=== PATIENT | female | born 1940 | race Native Hawaiian/Other Pacific Islander ===

== ENCOUNTER 2017-02-28 09:11 | Emergency (ER) | payer MEDICARE, OTHER ==
[~2017-02-28] VITALS: Ht 157.5 cm; Wt 86.4 kg
[~2017-02-28 09:11] MED LIST: AMIO200T44 PO; AMLO-512 PO; ANAS1TAB49 PO; ATOR20TA86 PO; CALC-724 PO; CARV25 PO; HYDR25TA PO; INSLAN SQ; LOSA50TA2 PO; METF500T4 PO; MULT-71 PO; SITA50 PO
[2017-02-28 09:22] LABS: GLUCOSE,POINT OF CARE 122 MG/DL (70-110)
[2017-02-28] MEDS ORDERED: HYDROCODONE/ACETAMINOPHEN 5-325 MG TABLET PO ONE (11:00)
[2017-02-28 11:20] VITALS: BP 149/76
== END 2017-02-28 11:25 | disposition home or self-care (01) ==
LOC: EMS 09:13
DX: S20.212A Contusion of left front wall of thorax, initial encounter (principal); I10 Essential (primary) hypertension; E78.00 Pure hypercholesterolemia, unspecified; E11.9 Type 2 diabetes mellitus without complications; Z79.4 Long term (current) use of insulin; Z85.3 Personal history of malignant neoplasm of breast; W18.30XA Fall on same level, unspecified, initial encounter; Y93.89 Activity, other specified; Y99.8 Other external cause status; Y92.89 Other specified places as the place of occurrence of the external cause
CPT/HCPCS: 71100; 82962; 99284

== ENCOUNTER 2017-03-25 12:25 | Emergency (ER) | payer MEDICARE, OTHER ==
[~2017-03-25] VITALS: Ht 154.9 cm; Wt 89.0 kg
[2017-03-25 12:57] LABS: GLUCOSE,POINT OF CARE 162 MG/DL (70-110)
[2017-03-25] MEDS ORDERED: KETOROLAC TROMETHAMINE 60 MG/2 ML VIAL IM ONE (16:00)
[2017-03-25] MEDS ORDERED: CYCLOBENZAPRINE HCL 10 MG TABLET PO ONE (16:00)
[2017-03-25] MEDS ORDERED: HYDROCODONE/ACETAMINOPHEN 5-325 MG TABLET PO ONE (16:00)
[2017-03-25 16:53] VITALS: BP 129/86
== END 2017-03-25 17:09 | disposition home or self-care (01) ==
LOC: EMS 12:30
DX: M54.5 Low back pain (principal); I10 Essential (primary) hypertension; E78.00 Pure hypercholesterolemia, unspecified; E11.9 Type 2 diabetes mellitus without complications; Z79.4 Long term (current) use of insulin; W19.XXXA Unspecified fall, initial encounter; Y93.89 Activity, other specified; Y92.89 Other specified places as the place of occurrence of the external cause; Y99.8 Other external cause status
CPT/HCPCS: 82962; 96372; 99283; J1885

== ENCOUNTER 2019-07-30 13:13 | Emergency (ER) | payer MEDICARE, OTHER ==
[~2019-07-30] VITALS: Ht 154.9 cm; Wt 90.9 kg
[~2019-07-30 13:13] MED LIST changes: -AMLO-512 PO; +AMLO5TAB9 PO; -ANAS1TAB49 PO; +ANAS1TAB50 PO; -HYDR25TA PO; +METF-444 PO; -METF500T4 PO; -MULT-71 PO; +MULT1TAB70 PO; +SITA100 PO; -SITA50 PO
[2019-07-30 13:32] LABS: GLUCOSE,POINT OF CARE 189 MG/DL (70-110)
[2019-07-30] MEDS ORDERED: CEPHALEXIN MONOHYDRATE 500 MG CAPSULE PO ONE (15:15)
[2019-07-30] MEDS ORDERED: MUPIROCIN CALCIUM 2% 22 GM OINTMENT TP ONE (15:15)
[2019-07-30 15:50] VITALS: BP 116/70
== END 2019-07-30 16:08 | disposition home or self-care (01) ==
LOC: EMS 13:16
DX: S81.001A Unspecified open wound, right knee, initial encounter (principal); L08.9 Local infection of the skin and subcutaneous tissue, unspecified; E11.9 Type 2 diabetes mellitus without complications; E78.00 Pure hypercholesterolemia, unspecified; I10 Essential (primary) hypertension; Z85.3 Personal history of malignant neoplasm of breast; Z98.890 Other specified postprocedural states; Z86.19 Personal history of other infectious and parasitic diseases; Z79.4 Long term (current) use of insulin; Z79.899 Other long term (current) drug therapy; W18.39XA Other fall on same level, initial encounter; Y93.89 Activity, other specified; Y92.89 Other specified places as the place of occurrence of the external cause; Y99.8 Other external cause status

== ENCOUNTER → 2021-05-02 | Outpatient (CLI) | payer MEDICARE, OTHER ==
[~2021-05-02] MED LIST changes: -AMIO200T44 PO; +AMIO200T68 PO; +AMLO-257 PO; -AMLO5TAB9 PO; +MULT-660 PO; -MULT1TAB70 PO
[2021-05-02 09:16] LABS: BILIRUBIN,TOTAL 0.3 mg/dL (0.1-1.0); CALCIUM, TOTAL 9.4 mg/dL (8.8-10.5); CHOL/HDL RATIO 2.9 (3.9-5.7); CREATININE 1.2 mg/dL (0.60-1.30); HEMOGLOBIN A1C 6.3 % (3.8-5.6); POTASSIUM 4.7 mmol/L (3.5-5.1); TOTAL PROTEIN, SERUM 7.7 g/dL (6.4-8.2)
[2021-05-02 10:47] LABS: CREATININE,URINE RANDOM 312.2 mg/dL (30.0-125.0)
== END | disposition home or self-care (01) ==
LOC: LABMN 08:33
PROVIDERS: ATTEND Internal Medicine Nephrology
DX: E11.22 Type 2 diabetes mellitus with diabetic chronic kidney disease (principal); N18.2 Chronic kidney disease, stage 2 (mild)
CPT/HCPCS: 80053; 80061; 82570; 83036; 84156

== ENCOUNTER → 2021-10-31 | Outpatient (CLI) | payer MEDICARE, OTHER ==
[2021-10-31 09:28] LABS: HEMOGLOBIN A1C 6.4 % (3.8-5.6)
[2021-10-31 09:34] LABS: BILIRUBIN,TOTAL 0.4 mg/dL (0.1-1.0); CALCIUM, TOTAL 9.4 mg/dL (8.8-10.5); CREATININE 1.31 mg/dL (0.60-1.30); POTASSIUM 4.4 mmol/L (3.5-5.1); TOTAL PROTEIN, SERUM 8.2 g/dL (6.4-8.2)
[2021-10-31 11:01] LABS: APPEARANCE,URINE CLEAR (CLEAR); BILIRUBIN,URINE NEGATIVE (NEGATIVE); GLUCOSE, URINE (UA) NEGATIVE (NEGATIVE); KETONES,URINE NEGATIVE (NEGATIVE); LEUKOCYTE ESTERASE ,URINE NEGATIVE (NEGATIVE); NITRATE,URINE NEGATIVE (NEGATIVE); OCCULT BLOOD,URINE NEGATIVE (NEGATIVE); PROTEIN,URINE SEE CONFIRM (NEGATIVE); UROBILINOGEN,URINE 0.2 mg/dL (<=1.0)
[2021-10-31 11:14] LABS: CREATININE,URINE RANDOM 68.5 mg/dL (30.0-125.0); PROTEIN,URINE RANDOM 102 mg/dL (0-11.9)
[2021-10-31 11:47] LABS: SULFOSALICYLIC ACID,URINE 2+ (Negative)
[2021-10-31 11:48] LABS: BACTERIA,URINE None Seen /HPF (None Seen); RBC,URINE None Seen /HPF (0-2); WBC,URINE None Seen /HPF (0-5)
== END | disposition home or self-care (01) ==
LOC: LABMN 08:46
PROVIDERS: ATTEND Internal Medicine Nephrology
DX: E11.22 Type 2 diabetes mellitus with diabetic chronic kidney disease (principal); N18.30 Chronic kidney disease, stage 3 unspecified
CPT/HCPCS: 80053; 80061; 81001; 81002; 82570; 83036; 84156

== ENCOUNTER → 2022-02-26 | Outpatient (CLI) | payer MEDICARE, OTHER | END | disposition home or self-care (01) | LOC: RADPV 09:43 | PROVIDERS: ATTEND Internal Medicine Cardiovascular Disease | DX: I08.3 Combined rheumatic disorders of mitral, aortic and tricuspid valves (principal); I50.1 Left ventricular failure, unspecified; I48.91 Unspecified atrial fibrillation | CPT/HCPCS: 93306 ==

== ENCOUNTER → 2022-07-03 | Outpatient (CLI) | payer MEDICARE, OTHER ==
[2022-07-03 09:21] LABS: ALBUMIN 3.9 g/dL (3.4-5.0); BILIRUBIN,TOTAL 0.4 mg/dL (0.1-1.0); CALCIUM, TOTAL 9.1 mg/dL (8.8-10.5); CHOL/HDL RATIO 2.9 (3.9-5.7); CREATININE 1.27 mg/dL (0.60-1.30); POTASSIUM 4.3 mmol/L (3.5-5.1); TOTAL PROTEIN, SERUM 7.5 g/dL (6.4-8.2)
[2022-07-03 09:47] LABS: CREATININE,URINE RANDOM 54.4 mg/dL (30.0-125.0)
== END | disposition home or self-care (01) ==
LOC: LABMN 08:17
PROVIDERS: ATTEND Internal Medicine Nephrology
DX: N18.30 Chronic kidney disease, stage 3 unspecified (principal); E78.5 Hyperlipidemia, unspecified; E55.9 Vitamin D deficiency, unspecified; R80.8 Other proteinuria
CPT/HCPCS: 80053; 80061; 82306; 82570; 84156

== ENCOUNTER → 2022-11-06 | Outpatient (CLI) | payer MEDICARE, OTHER ==
[2022-11-06 08:52] LABS: CALCIUM, TOTAL 9.5 mg/dL (8.8-10.5); CREATININE 1.22 mg/dL (0.60-1.30); HEMOGLOBIN A1C 6.3 % (3.8-5.6); POTASSIUM 4.7 mmol/L (3.5-5.1)
== END | disposition home or self-care (01) ==
LOC: LABMN 08:12
PROVIDERS: ATTEND Internal Medicine Nephrology
DX: E11.22 Type 2 diabetes mellitus with diabetic chronic kidney disease (principal); N18.30 Chronic kidney disease, stage 3 unspecified
CPT/HCPCS: 80048; 82570; 83036; 84156

== ENCOUNTER 2023-02-21 10:57 | Emergency (ER) | payer MEDICARE, OTHER ==
[~2023-02-21] VITALS: Ht 152.4 cm; Wt 81.8 kg
[~2023-02-21 10:57] MED LIST changes: +ATOR20TA PO; -ATOR20TA86 PO; +LOSA-418 PO; -LOSA50TA2 PO
[2023-02-21] MEDS ORDERED: ACETAMINOPHEN 500 MG TABLET PO ONE (11:30)
[2023-02-21 11:32] LABS: GLUCOMETER DEV NAME(LOC) ERT.5; GLUCOSE,POINT OF CARE 109 MG/DL (70-110)
[2023-02-21] MEDS ORDERED: AMLO10TA55 PO (11:34)
[2023-02-21] MEDS ORDERED: HYDR-4174 PO (11:34)
[2023-02-21] MEDS ORDERED: APIX5TAB PO (11:34)
[2023-02-21] MEDS ORDERED: ATOR10TA69 PO (11:34)
[2023-02-21] MEDS ORDERED: CALC-877 PO (11:35)
[2023-02-21 13:33] VITALS: BP 134/76
== END 2023-02-21 13:46 | disposition home or self-care (01) ==
LOC: EMS 11:17
DX: S43.402A Unspecified sprain of left shoulder joint, initial encounter (principal); E11.9 Type 2 diabetes mellitus without complications; E78.00 Pure hypercholesterolemia, unspecified; I10 Essential (primary) hypertension; Z98.890 Other specified postprocedural states; Z90.722 Acquired absence of ovaries, bilateral; W10.8XXA Fall (on) (from) other stairs and steps, initial encounter; Y93.89 Activity, other specified; Y92.89 Other specified places as the place of occurrence of the external cause; Y99.8 Other external cause status
CPT/HCPCS: 82962; 99284

== ENCOUNTER → 2023-03-05 | Outpatient (CLI) | payer MEDICARE, OTHER ==
[~2023-03-05] MED LIST changes: -AMLO-257 PO; +AMLO10TA55 PO; -ANAS1TAB50 PO; +APIX5TAB PO; +ATOR10TA69 PO; -ATOR20TA PO; -CALC-724 PO; +CALC-877 PO; +HYDR-4174 PO
[2023-03-05 10:47] LABS: APPEARANCE,URINE CLEAR (CLEAR); BILIRUBIN,URINE NEGATIVE (NEGATIVE); GLUCOSE, URINE (UA) NEGATIVE (NEGATIVE); KETONES,URINE NEGATIVE (NEGATIVE); LEUKOCYTE ESTERASE ,URINE NEGATIVE (NEGATIVE); NITRATE,URINE NEGATIVE (NEGATIVE); OCCULT BLOOD,URINE NEGATIVE (NEGATIVE); PROTEIN,URINE TRACE mg/dL (NEGATIVE); SPECIFIC GRAVITIY, URINE 1.005 (1.003-1.030); UROBILINOGEN,URINE <=1.0 mg/dL (<=1.0)
[2023-03-05 10:55] LABS: CHOL/HDL RATIO 3.3 (3.9-5.7); CREATININE 1.02 mg/dL (0.60-1.30); POTASSIUM 4.4 mmol/L (3.5-5.1)
[2023-03-05 13:02] LABS: CREATININE,URINE RANDOM 21.5 mg/dL (30.0-125.0); PROTEIN,URINE RANDOM 21 mg/dL (0-11.9)
== END | disposition home or self-care (01) ==
LOC: LABMN 10:03
PROVIDERS: ATTEND Internal Medicine Nephrology
DX: E11.22 Type 2 diabetes mellitus with diabetic chronic kidney disease (principal); N18.30 Chronic kidney disease, stage 3 unspecified; E55.9 Vitamin D deficiency, unspecified
CPT/HCPCS: 80048; 80061; 81003; 82306; 82570; 83970; 84156

== ENCOUNTER → 2023-07-02 | Outpatient (CLI) | payer MEDICARE, OTHER | END | disposition home or self-care (01) | LOC: LABMN 09:52 | PROVIDERS: ATTEND Internal Medicine Nephrology | DX: N18.30 Chronic kidney disease, stage 3 unspecified (principal) | CPT/HCPCS: 84132 ==

== ENCOUNTER → 2023-07-06 | Outpatient (CLI) | payer MEDICARE, OTHER ==
[2023-07-06 09:47] LABS: HEMOGLOBIN A1C 6.4 % (3.8-5.6)
[2023-07-06 09:50] LABS: CREATININE,URINE RANDOM 153.8 mg/dL (30.0-125.0)
[2023-07-06 09:52] LABS: BILIRUBIN,TOTAL 0.6 mg/dL (0.1-1.0); CREATININE 1.1 mg/dL (0.60-1.30); POTASSIUM 4.8 mmol/L (3.5-5.1); TOTAL PROTEIN, SERUM 7.7 g/dL (6.4-8.2)
[2023-07-07 08:06] LABS: IGA (IFE) 168 mg/dL (64-422); IGM (IMMUNOFIXATION) 201 mg/dL (26-217)
[2023-07-08 07:06] LABS: ALBUMIN URINE 70.7 %; ALPHA-1 URINE 4.5 %; ALPHA-2 URINE 7.2 %; TOTAL PROTEIN URINE 79.4 mg/dL (Not Estab.)
== END | disposition home or self-care (01) ==
LOC: LABMN 09:03
PROVIDERS: ATTEND Internal Medicine Nephrology
DX: E11.22 Type 2 diabetes mellitus with diabetic chronic kidney disease (principal); N18.30 Chronic kidney disease, stage 3 unspecified; R80.9 Proteinuria, unspecified
CPT/HCPCS: 80053; 82570; 82784; 83036; 84156; 84166; 86334; 86335

== ENCOUNTER 2023-10-24 09:32 | Inpatient (IN) | payer MEDICARE, OTHER ==
[~2023-10-24] VITALS: Ht 154.9 cm; Wt 79.0 kg
[~2023-10-24 09:32] MED LIST changes: -HYDR-4174 PO; +HYDR50TA37 PO
[2023-10-24] MEDS ORDERED: LOSA100T59 PO (09:45)
[2023-10-24] MEDS ORDERED: HYDR100T28 PO (09:45)
[2023-10-24] MEDS ORDERED: IPRATROPIUM BROMIDE 0.5 MG/2.5 ML NEB SOLUTION NEB ONE (11:00)
[2023-10-24] MEDS ORDERED: ALBUTEROL SULFATE 2.5 MG/0.5 ML NEB SOLUTION NEB ONE (11:00)
[2023-10-24] MEDS ORDERED: MethylPREDNISolone SOD SUCC 125 MG/2 ML VIAL IVP ONE (11:00)
[2023-10-24 11:04] LABS: BASOPHILS % (AUTO) 0.2 % (0.0-2.0); EOSINOPHILS % (AUTO) 0.6 % (1.0-6.0); HEMATOCRIT 36.2 % (36-46); HEMOGLOBIN 11.9 g/dL (12.0-16.0); LYMPHOCYTES # (AUTO) 0.3 K/uL (1.0-4.8); MEAN CORPUSCULAR HEMOGLOBIN 28.5 pg (26.0-34.0); MEAN CORPUSCULAR HGB CONC 32.7 G/dL (31.0-37.0); MEAN CORPUSCULAR VOLUME 87 fL (80-100); MONOCYTES % (AUTO) 7.3 % (2.0-9.0); NEUTROPHILS % (AUTO) 89.9 % (40.0-70.0); PLATELET COUNT (AUTO) 199 K/uL (150-450); RED BLOOD CELL COUNT(AUTO) 4.15 MIL/uL (4.00-5.20); RED CELL DISTRIBUTION WIDTH 15.7 % (11.5-14.5); WHITE BLOOD COUNT (AUTO) 13.3 K/uL (4.5-11.0)
[2023-10-24 11:07] LABS: COVID AG,FIA SOURCE NASAL SWAB
[2023-10-24 11:14] LABS: CALCIUM, TOTAL 9.6 mg/dL (8.8-10.5); CREATININE 2.49 mg/dL (0.60-1.30)
[2023-10-24] MEDS ORDERED: AZITHROMYCIN 500 MG/NS 250 ML IV ONE (11:15)
[2023-10-24] MEDS ORDERED: CefTRIAXone 1 GM/DEXTROSE 50 ML IV ONE (11:15)
[2023-10-24 11:21] LABS: ALBUMIN 2.5 g/dL (3.4-5.0); BILIRUBIN,TOTAL 1.4 mg/dL (0.1-1.0); TOTAL PROTEIN, SERUM 6.9 g/dL (6.4-8.2); TROPONIN I-HIGH SENSITIVITY 11 ng/L (<51)
[2023-10-24 11:24] LABS: INFLUENZA TYPE A NEGATIVE FOR TYPE A (NEGATIVE); INFLUENZA TYPE B NEGATIVE FOR TYPE B (NEGATIVE)
[2023-10-24 11:27] VITALS: PULSE 77; RESP 16; O2SAT 97
[2023-10-24 11:28] VITALS: PULSE 77; RESP 16; O2SAT 97
[2023-10-24 11:30] LABS: SARS-COV2 (COVID) ANTIGEN,FIA Positive (Negative)
[2023-10-24] MEDS ORDERED: ACETAMINOPHEN 325 MG TABLET PO PRN ×2 (12:45→14:15)
[2023-10-24] MEDS ORDERED: 0.9% SODIUM CHLORIDE 10 ML SYRINGE IVP PRN (12:45)
[2023-10-24] MEDS ORDERED: ONDANSETRON HCL 4 MG/2 ML VIAL IVP PRN ×2 (12:45→14:15)
[2023-10-24] MEDS ORDERED: MAGNESIUM HYDROXIDE SUSPENSION 30 ML UDCUP PO PRN (14:15)
[2023-10-24] MEDS ORDERED: MORPHINE SULFATE 2 MG/ML SYRINGE IVP PRN (14:15)
[2023-10-24] MEDS ORDERED: SODIUM CHLORIDE 0.9% 500 ML IV ONE (14:15)
[2023-10-24] MEDS ORDERED: ZOLPIDEM TARTRATE 5 MG TABLET PO PRN (14:15)
[2023-10-24] MEDS ORDERED: HYDROCODONE/ACETAMINOPHEN 5-325 MG TABLET PO PRN (14:15)
[2023-10-24] MEDS ORDERED: BISACODYL 10 MG RECTAL RECTAL SUPPOSITORY PR PRN (14:15)
[2023-10-24 14:46] VITALS: O2SAT 96
[2023-10-24] MEDS ORDERED: SODIUM CHLORIDE 0.9% 1,000 ML IV ONE (15:15)
[2023-10-24 16:53] VITALS: BP 122/68; PULSE 72; RESP 18; TEMP 98
[2023-10-24] MEDS ORDERED: INFLUENZA VIRUS VACCINE QVS 2023-24 (6MO+)/PF 60 MCG/0.5 ML SYRINGE IM. ONE (19:00)
[2023-10-24] MEDS ORDERED: PNEUMOCOCCAL VACCINE POLYVALENT 0.5 ML SYRINGE [PPSV23] IM. ONE (19:15)
[2023-10-24 20:06] VITALS: BP 126/84; PULSE 79; RESP 18; TEMP 97.5
[2023-10-24] MEDS ORDERED: APIXABAN 5 MG TABLET PO SCH (21:00)
[2023-10-24] MEDS: DOCUSATE SODIUM 100 MG CAPSULE PO SCH (21:02)
[2023-10-24] MEDS: APIXABAN 2.5 MG TABLET PO SCH (21:02)
[2023-10-24 23:34] VITALS: BP 130/75; PULSE 75; RESP 18; TEMP 97.4
[2023-10-25 03:34] VITALS: BP 136/66; PULSE 71; RESP 18; TEMP 97.5
[2023-10-25 08:18] VITALS: BP 128/73; PULSE 76; RESP 19; TEMP 97.9
[2023-10-25 08:23] LABS: EOSINOPHILS % (AUTO) 0 % (1.0-6.0); HEMATOCRIT 33.7 % (36-46); HEMOGLOBIN 11.2 g/dL (12.0-16.0); LYMPHOCYTES # (AUTO) 0.3 K/uL (1.0-4.8); LYMPHOCYTES % (AUTO) 2.1 % (22.0-44.0); MEAN CORPUSCULAR HEMOGLOBIN 28.8 pg (26.0-34.0); MEAN CORPUSCULAR HGB CONC 33.2 G/dL (31.0-37.0); MEAN CORPUSCULAR VOLUME 87 fL (80-100); MONOCYTES # (AUTO) 0.5 K/uL (0.1-1.0); MONOCYTES % (AUTO) 3.2 % (2.0-9.0); NEUTROPHILS # (AUTO) 13.7 K/uL (1.8-7.7); PLATELET COUNT (AUTO) 233 K/uL (150-450); RED BLOOD CELL COUNT(AUTO) 3.88 MIL/uL (4.00-5.20); RED CELL DISTRIBUTION WIDTH 15.8 % (11.5-14.5); WHITE BLOOD COUNT (AUTO) 14.4 K/uL (4.5-11.0)
[2023-10-25 08:26] LABS: NEUTROPHILS % (AUTO) 94.7 % (40.0-70.0)
[2023-10-25] MEDS: PANTOPRAZOLE SODIUM 40 MG DR TABLET PO SCH (08:55)
[2023-10-25] MEDS: APIXABAN 2.5 MG TABLET PO SCH ×2 (08:55→21:34)
[2023-10-25] MEDS: ATORVASTATIN CALCIUM 10 MG TABLET PO SCH (08:55)
[2023-10-25] MEDS: DOCUSATE SODIUM 100 MG CAPSULE PO SCH ×2 (08:55→21:34)
[2023-10-25 09:00] LABS: RBC MORPHOLOGY COMMENT NORMAL RBC MORPH
[2023-10-25] MEDS ORDERED: DEXAMETHASONE 4 MG TABLET PO SCH (09:00)
[2023-10-25 09:08] LABS: ALBUMIN 2.2 g/dL (3.4-5.0); BILIRUBIN,TOTAL 0.7 mg/dL (0.1-1.0); CALCIUM, TOTAL 9.1 mg/dL (8.8-10.5); CREATININE 2.5 mg/dL (0.60-1.30); POTASSIUM 5.1 mmol/L (3.5-5.1); TOTAL PROTEIN, SERUM 6.3 g/dL (6.4-8.2)
[2023-10-25] MEDS ORDERED: INSULIN LISPRO 100 UNITS/ML SQ ONE ×2 (09:30→13:45)
[2023-10-25] MEDS ORDERED: DEXTROSE 50%-WATER 25 GM/50 ML SYRINGE IVP PRN (09:30)
[2023-10-25 11:01] VITALS: BP 127/69; PULSE 79; RESP 19; TEMP 97.5
[2023-10-25 12:01] LABS: GLUCOMETER DEV NAME(LOC) 5N.2C; GLUCOSE,POINT OF CARE 441 MG/DL (70-110)
[2023-10-25] MEDS: AMIODARONE HCL 200 MG TABLET PO SCH (12:23)
[2023-10-25] MEDS: CefTRIAXone 1 GM/DEXTROSE 50 ML IV SCH (12:24)
[2023-10-25 13:15] VITALS: O2SAT 96
[2023-10-25] MEDS: AZITHROMYCIN 500 MG/NS 250 ML IV SCH (13:23)
[2023-10-25 15:40] VITALS: BP 100/67; PULSE 80; RESP 19; TEMP 97.8
[2023-10-25 17:31] LABS: GLUCOMETER DEV NAME(LOC) 5S.1B; GLUCOSE,POINT OF CARE 427 MG/DL (70-110)
[2023-10-25] MEDS: INSULIN LISPRO 100 UNITS/ML SQ PRN ×2 (18:37→21:37)
[2023-10-25 19:36] LABS: GLUCOMETER DEV NAME(LOC) 5S.1B; GLUCOSE,POINT OF CARE 215 MG/DL (70-110)
[2023-10-25 20:38] LABS: CREATININE,URINE RANDOM 72.8 mg/dL (30.0-125.0)
[2023-10-25 20:41] VITALS: BP 98/57; PULSE 80; RESP 20; TEMP 98.1
[2023-10-25] MEDS: INSULIN GLARGINE,HUM.REC.ANLOG 100 UNITS/ML SQ SCH (21:38)
[2023-10-25 22:12] LABS: GLUCOMETER DEV NAME(LOC) 5N.1C; GLUCOSE,POINT OF CARE 226 MG/DL (70-110)
[2023-10-26] VITALS (8 sets, daily range): BP systolic 131–151; BP diastolic 70–98; PULSE 70–91; RESP 17–20; TEMP 97.5–98; O2SAT 97–98
[2023-10-26] MEDS: INSULIN LISPRO 100 UNITS/ML SQ PRN ×4 (06:52→21:33)
[2023-10-26 07:44] LABS: BASOPHILS % (AUTO) 0.4 % (0.0-2.0); EOSINOPHILS % (AUTO) 0.1 % (1.0-6.0); HEMATOCRIT 36.3 % (36-46); LYMPHOCYTES # (AUTO) 0.4 K/uL (1.0-4.8); LYMPHOCYTES % (AUTO) 2.3 % (22.0-44.0); MEAN CORPUSCULAR HEMOGLOBIN 28.8 pg (26.0-34.0); MEAN CORPUSCULAR HGB CONC 32.9 G/dL (31.0-37.0); MEAN CORPUSCULAR VOLUME 87 fL (80-100); MONOCYTES # (AUTO) 1.2 K/uL (0.1-1.0); MONOCYTES % (AUTO) 6.8 % (2.0-9.0); NEUTROPHILS # (AUTO) 15.6 K/uL (1.8-7.7); PLATELET COUNT (AUTO) 271 K/uL (150-450); RED BLOOD CELL COUNT(AUTO) 4.16 MIL/uL (4.00-5.20); RED CELL DISTRIBUTION WIDTH 15.6 % (11.5-14.5); WHITE BLOOD COUNT (AUTO) 17.2 K/uL (4.5-11.0)
[2023-10-26 07:48] LABS: NEUTROPHILS % (AUTO) 90.4 % (40.0-70.0)
[2023-10-26 07:49] LABS: RBC MORPHOLOGY COMMENT NORMAL RBC MORPH
[2023-10-26 07:56] LABS: CALCIUM, TOTAL 9.4 mg/dL (8.8-10.5); CREATININE 2.35 mg/dL (0.60-1.30)
[2023-10-26] MEDS: AMIODARONE HCL 200 MG TABLET PO SCH (08:10)
[2023-10-26] MEDS: APIXABAN 2.5 MG TABLET PO SCH ×2 (08:10→21:30)
[2023-10-26] MEDS: ATORVASTATIN CALCIUM 10 MG TABLET PO SCH (08:10)
[2023-10-26] MEDS: DOCUSATE SODIUM 100 MG CAPSULE PO SCH ×2 (08:10→21:30)
[2023-10-26] MEDS: PANTOPRAZOLE SODIUM 40 MG DR TABLET PO SCH (08:11)
[2023-10-26] MEDS: CefTRIAXone 1 GM/DEXTROSE 50 ML IV SCH (11:08)
[2023-10-26] MEDS: AZITHROMYCIN 500 MG/NS 250 ML IV SCH (12:20)
[2023-10-26 19:36] LABS: GLUCOMETER DEV NAME(LOC) 5N.1C; GLUCOSE,POINT OF CARE 294 MG/DL (70-110)
[2023-10-26 19:36] LABS: GLUCOMETER DEV NAME(LOC) 5S.1B; GLUCOSE,POINT OF CARE 278 MG/DL (70-110)
[2023-10-26 19:36] LABS: GLUCOMETER DEV NAME(LOC) 5S.1B; GLUCOSE,POINT OF CARE 368 MG/DL (70-110)
[2023-10-26] MEDS: INSULIN GLARGINE,HUM.REC.ANLOG 100 UNITS/ML SQ SCH (21:31)
[2023-10-26 23:16] LABS: GLUCOMETER DEV NAME(LOC) 5S.1B; GLUCOSE,POINT OF CARE 283 MG/DL (70-110)
[2023-10-27 00:20] VITALS: BP 131/81; PULSE 77; RESP 20; TEMP 97.7
[2023-10-27 04:00] VITALS: BP 136/78; PULSE 75; RESP 24; TEMP 98.1
[2023-10-27] MEDS: INSULIN LISPRO 100 UNITS/ML SQ PRN ×4 (04:51→20:42)
[2023-10-27 06:01] LABS: GLUCOMETER DEV NAME(LOC) 5S.1B; GLUCOSE,POINT OF CARE 205 MG/DL (70-110)
[2023-10-27 07:03] LABS: BASOPHILS % (AUTO) 0.1 % (0.0-2.0); EOSINOPHILS % (AUTO) 1.1 % (1.0-6.0); HEMATOCRIT 35.4 % (36-46); HEMOGLOBIN 11.7 g/dL (12.0-16.0); LYMPHOCYTES # (AUTO) 0.5 K/uL (1.0-4.8); LYMPHOCYTES % (AUTO) 4.6 % (22.0-44.0); MEAN CORPUSCULAR HGB CONC 33.2 G/dL (31.0-37.0); MEAN CORPUSCULAR VOLUME 87 fL (80-100); MONOCYTES # (AUTO) 0.8 K/uL (0.1-1.0); MONOCYTES % (AUTO) 7.2 % (2.0-9.0); NEUTROPHILS # (AUTO) 9.4 K/uL (1.8-7.7); PLATELET COUNT (AUTO) 286 K/uL (150-450); RED BLOOD CELL COUNT(AUTO) 4.05 MIL/uL (4.00-5.20); RED CELL DISTRIBUTION WIDTH 15.5 % (11.5-14.5); WHITE BLOOD COUNT (AUTO) 10.8 K/uL (4.5-11.0)
[2023-10-27 07:27] LABS: CALCIUM, TOTAL 9.5 mg/dL (8.8-10.5); CREATININE 1.89 mg/dL (0.60-1.30); POTASSIUM 4.2 mmol/L (3.5-5.1)
[2023-10-27 07:30] VITALS: BP 140/88; PULSE 84; RESP 18; TEMP 97.9
[2023-10-27 08:06] LABS: CREATININE, URINE (mALB) 71.4 mg/dL (Not Estab.)
[2023-10-27] MEDS: PANTOPRAZOLE SODIUM 40 MG DR TABLET PO SCH (08:55)
[2023-10-27] MEDS: AMIODARONE HCL 200 MG TABLET PO SCH (08:55)
[2023-10-27] MEDS: ATORVASTATIN CALCIUM 10 MG TABLET PO SCH (08:55)
[2023-10-27] MEDS: APIXABAN 2.5 MG TABLET PO SCH ×2 (08:55→20:41)
[2023-10-27] MEDS: DOCUSATE SODIUM 100 MG CAPSULE PO SCH ×2 (08:55→20:41)
[2023-10-27] MEDS: CefTRIAXone 1 GM/DEXTROSE 50 ML IV SCH (10:32)
[2023-10-27] MEDS: AZITHROMYCIN 500 MG/NS 250 ML IV SCH (11:25)
[2023-10-27 11:42] VITALS: BP 132/74; PULSE 76; RESP 20; TEMP 97.8
[2023-10-27 12:32] LABS: GLUCOMETER DEV NAME(LOC) 5S.1B; GLUCOSE,POINT OF CARE 297 MG/DL (70-110)
[2023-10-27 15:23] VITALS: BP 133/87; PULSE 80; RESP 19; TEMP 98.6
[2023-10-27 17:01] LABS: GLUCOMETER DEV NAME(LOC) 5S.1B; GLUCOSE,POINT OF CARE 318 MG/DL (70-110)
[2023-10-27 20:00] VITALS: BP 122/78; PULSE 83; RESP 18; TEMP 98.6
[2023-10-27] MEDS: INSULIN GLARGINE,HUM.REC.ANLOG 100 UNITS/ML SQ SCH (20:42)
[2023-10-28] VITALS: BP 126/83; PULSE 84; RESP 18; TEMP 98.7
[2023-10-28 00:01] LABS: GLUCOMETER DEV NAME(LOC) 5N.1C; GLUCOSE,POINT OF CARE 263 MG/DL (70-110)
[2023-10-28 04:00] VITALS: BP 122/82; PULSE 78; RESP 18; TEMP 98.7
[2023-10-28] MEDS: INSULIN LISPRO 100 UNITS/ML SQ PRN ×2 (06:07→11:58)
[2023-10-28] MEDS: AMIODARONE HCL 200 MG TABLET PO SCH (08:12)
[2023-10-28] MEDS: DOCUSATE SODIUM 100 MG CAPSULE PO SCH (08:12)
[2023-10-28] MEDS: PANTOPRAZOLE SODIUM 40 MG DR TABLET PO SCH (08:14)
[2023-10-28] MEDS: APIXABAN 2.5 MG TABLET PO SCH (08:14)
[2023-10-28] MEDS: ATORVASTATIN CALCIUM 10 MG TABLET PO SCH (08:14)
[2023-10-28 08:20] VITALS: BP 124/68; PULSE 84; RESP 19; TEMP 98.1
[2023-10-28] MEDS ORDERED: CARVEDILOL 3.125 MG TABLET PO SCH (09:00)
[2023-10-28] MEDS: CefTRIAXone 1 GM/DEXTROSE 50 ML IV SCH (10:29)
[2023-10-28] MEDS: AZITHROMYCIN 500 MG/NS 250 ML IV SCH (11:10)
[2023-10-28 11:19] VITALS: BP 129/70; PULSE 79; RESP 19; TEMP 98
[2023-10-28 11:36] LABS: GLUCOMETER DEV NAME(LOC) 5S.1B; GLUCOSE,POINT OF CARE 193 MG/DL (70-110)
[2023-10-28] MEDS ORDERED: APIX2.5T PO (12:15)
[2023-10-28] MEDS ORDERED: INSLAN SQ (12:15)
[2023-10-28] MEDS ORDERED: CARV3 PO (12:15)
[2023-10-28] MEDS ORDERED: AZIT-104 PO (12:17)
[2023-10-28] MEDS ORDERED: CEPH-558 PO (12:17)
[2023-10-28 12:26] LABS: GLUCOMETER DEV NAME(LOC) 5N.1C; GLUCOSE,POINT OF CARE 286 MG/DL (70-110)
[2023-10-28 14:44] VITALS: BP 118/71; PULSE 79; RESP 18; TEMP 98.2
[2023-10-28 17:31] LABS: GLUCOMETER DEV NAME(LOC) 5S.1B; GLUCOSE,POINT OF CARE 231 MG/DL (70-110)
== END 2023-10-28 17:15 | disposition home or self-care (01) | DRG 177 ==
LOC: EMS 09:35 → 5N 12:51 → 5S 10-25 00:29
PROVIDERS: ADMIT Internal Medicine; ATTEND Internal Medicine
DX: U07.1 COVID-19 (principal); J12.82 Pneumonia due to coronavirus disease 2019; I48.20 Chronic atrial fibrillation, unspecified; N17.9 Acute kidney failure, unspecified; E87.1 Hypo-osmolality and hyponatremia; I50.9 Heart failure, unspecified; N18.30 Chronic kidney disease, stage 3 unspecified; B18.2 Chronic viral hepatitis C; I11.0 Hypertensive heart disease with heart failure; E11.65 Type 2 diabetes mellitus with hyperglycemia; D64.9 Anemia, unspecified; D72.829 Elevated white blood cell count, unspecified; T38.0X5A Adverse effect of glucocorticoids and synthetic analogues, initial encounter; Y92.238 Other place in hospital as the place of occurrence of the external cause; E11.22 Type 2 diabetes mellitus with diabetic chronic kidney disease; E78.00 Pure hypercholesterolemia, unspecified; Z85.3 Personal history of malignant neoplasm of breast; Z79.899 Other long term (current) drug therapy; Z79.01 Long term (current) use of anticoagulants
CPT/HCPCS: 71045; 73521; 80048; 80053; 82043; 82550; 82570; 82962; 83880; 84156; 84300; 84484; 85025; 87804; 93005; 94640; 97116; 97162; 99291; J0456; J0696; J1815; J2930; J7040; J8540; 36415-L1; 36415-TC; J7613

== ENCOUNTER 2024-04-03 07:19 | Emergency (ER) | payer MEDICARE, OTHER ==
[~2024-04-03] VITALS: Ht 149.9 cm; Wt 84.1 kg
[~2024-04-03 07:19] MED LIST changes: -AMLO10TA55 PO; +APIX2.5T PO; -APIX5TAB PO; +AZIT-167 PO; -CARV25 PO; +CARV3 PO; +CEPH-558 PO; -HYDR50TA37 PO; -LOSA-418 PO; -METF-444 PO; -MULT-660 PO
[2024-04-03 07:31] VITALS: BP 138/68; PULSE 74; RESP 18; TEMP 98.3
[2024-04-03] MEDS ORDERED: METF-1211 PO (07:31)
[2024-04-03] MEDS ORDERED: CARV6 PO (07:31)
[2024-04-03] MEDS ORDERED: LOSA-382 PO (07:31)
[2024-04-03] MEDS ORDERED: APIX5TAB PO (07:31)
[2024-04-03] MEDS ORDERED: AMLO10TA55 PO (07:31)
[2024-04-03] MEDS ORDERED: CALC-959 PO (07:31)
[2024-04-03] MEDS ORDERED: INSLAN SQ (07:31)
[2024-04-03] MEDS ORDERED: AMIO100T4 PO (07:31)
[2024-04-03] MEDS: ACETAMINOPHEN 500 MG TABLET PO ONE (08:02)
[2024-04-03] MEDS ORDERED: ACET-3385 PO (09:31)
== END 2024-04-03 09:47 | disposition home or self-care (01) ==
LOC: EMS 07:19
DX: S09.90XA Unspecified injury of head, initial encounter (principal); M25.511 Pain in right shoulder; I11.0 Hypertensive heart disease with heart failure; I50.9 Heart failure, unspecified; E11.9 Type 2 diabetes mellitus without complications; E78.00 Pure hypercholesterolemia, unspecified; W19.XXXA Unspecified fall, initial encounter; Y93.89 Activity, other specified; Y92.89 Other specified places as the place of occurrence of the external cause; Y99.8 Other external cause status
CPT/HCPCS: 70450; 72125; 82962; 99284

== ENCOUNTER 2024-07-20 10:27 | Emergency (ER) | payer MEDICARE, OTHER ==
[~2024-07-20] VITALS: Ht 154.9 cm; Wt 81.8 kg
[~2024-07-20 10:27] MED LIST changes: +ACET-3385 PO; +AMIO100T4 PO; -AMIO200T68 PO; +AMLO10TA55 PO; -APIX2.5T PO; +APIX5TAB PO; -ATOR10TA69 PO; -AZIT-167 PO; -CALC-877 PO; +CALC-959 PO; -CARV3 PO; +CARV6 PO; -CEPH-558 PO; +LOSA-382 PO; +METF-1211 PO
[2024-07-20 10:34] VITALS: TEMP 97.9
[2024-07-20] MEDS ORDERED: CARV12.530 PO (10:34)
[2024-07-20] MEDS ORDERED: INSU3INS3 SQ (10:34)
[2024-07-20] MEDS ORDERED: METF-446 PO (10:34)
[2024-07-20] MEDS ORDERED: LOSA100T59 PO (10:34)
[2024-07-20] MEDS ORDERED: CALC-462 PO (10:34)
[2024-07-20] MEDS ORDERED: ATOR10TA69 PO (10:34)
[2024-07-20 14:48] VITALS: BP 151/90; PULSE 84; RESP 16; O2SAT 100
== END 2024-07-20 14:55 | disposition home or self-care (01) ==
LOC: EMS 10:27
DX: S09.90XA Unspecified injury of head, initial encounter (principal); M25.552 Pain in left hip; I11.0 Hypertensive heart disease with heart failure; I50.9 Heart failure, unspecified; E11.9 Type 2 diabetes mellitus without complications; E78.00 Pure hypercholesterolemia, unspecified; Z79.01 Long term (current) use of anticoagulants; Z79.84 Long term (current) use of oral hypoglycemic drugs; Z86.19 Personal history of other infectious and parasitic diseases; Z79.899 Other long term (current) drug therapy; W22.8XXA Striking against or struck by other objects, initial encounter; Y93.89 Activity, other specified; Y92.89 Other specified places as the place of occurrence of the external cause; Y99.8 Other external cause status
CPT/HCPCS: 70450; 71101; 72125; 73503; 99284

== ENCOUNTER 2024-07-28 13:22 | Emergency (ER) | payer MEDICARE, OTHER ==
[~2024-07-28] VITALS: Ht 160 cm; Wt 85.0 kg
[~2024-07-28 13:22] MED LIST changes: -ACET-3385 PO; +ATOR10TA69 PO; +CALC-462 PO; -CALC-959 PO; +CARV12.530 PO; -CARV6 PO; -INSLAN SQ; +INSU3INS3 SQ; -LOSA-382 PO; +LOSA100T59 PO; -METF-1211 PO; +METF-446 PO
[2024-07-28 13:39] VITALS: BP 174/81; PULSE 84; RESP 16; TEMP 98.5; O2SAT 97
[2024-07-28 13:54] LABS: EOSINOPHILS % (AUTO) 4.1 % (1.0-6.0); HEMATOCRIT 38.6 % (36-46); HEMOGLOBIN 12.5 g/dL (12.0-16.0); LYMPHOCYTES # (AUTO) 0.9 K/uL (1.0-4.8); LYMPHOCYTES % (AUTO) 14.6 % (22.0-44.0); MEAN CORPUSCULAR HEMOGLOBIN 29.1 pg (26.0-34.0); MEAN CORPUSCULAR HGB CONC 32.3 G/dL (31.0-37.0); MEAN CORPUSCULAR VOLUME 90 fL (80-100); MONOCYTES # (AUTO) 0.5 K/uL (0.1-1.0); MONOCYTES % (AUTO) 8.6 % (2.0-9.0); NEUTROPHILS # (AUTO) 4.5 K/uL (1.8-7.7); NEUTROPHILS % (AUTO) 71.7 % (40.0-70.0); PLATELET COUNT (AUTO) 292 K/uL (150-450); RED BLOOD CELL COUNT(AUTO) 4.28 MIL/uL (4.00-5.20); RED CELL DISTRIBUTION WIDTH 14.5 % (11.5-14.5); WHITE BLOOD COUNT (AUTO) 6.2 K/uL (4.5-11.0)
[2024-07-28] MEDS: CALCIUM GLUCONATE 100 MG/ML 10 ML IVP ONE (13:57)
[2024-07-28 14:02] LABS: CALCIUM, TOTAL 9.2 mg/dL (8.8-10.5); CREATININE 1.97 mg/dL (0.60-1.30); POTASSIUM 4.6 mmol/L (3.5-5.1)
[2024-07-28 14:08] LABS: ALBUMIN 3.6 g/dL (3.4-5.0); BILIRUBIN,DIRECT 0.1 mg/dL (0.00-0.20); BILIRUBIN,TOTAL 0.4 mg/dL (0.1-1.0); TOTAL PROTEIN, SERUM 7.7 g/dL (6.4-8.2)
== END 2024-07-28 15:23 | disposition home or self-care (01) ==
LOC: EMS 13:22
DX: E87.5 Hyperkalemia (principal); I13.0 Hypertensive heart and chronic kidney disease with heart failure and stage 1 through stage 4 chronic kidney disease, or unspecified chronic kidney disease; E11.22 Type 2 diabetes mellitus with diabetic chronic kidney disease; E11.65 Type 2 diabetes mellitus with hyperglycemia; N18.9 Chronic kidney disease, unspecified; E78.00 Pure hypercholesterolemia, unspecified; Z90.721 Acquired absence of ovaries, unilateral; Z86.19 Personal history of other infectious and parasitic diseases; Z98.890 Other specified postprocedural states
CPT/HCPCS: 80048; 80076; 82962; 85025; 36415; 99284; 93005; 96374; J0610

== ENCOUNTER → 2024-10-18 | Outpatient (CLI) | payer MEDICARE, OTHER ==
[2024-10-18 12:02] LABS: HEMOGLOBIN A1C 10.1 % (3.8-5.6)
[2024-10-18 12:06] LABS: ALBUMIN 3.8 g/dL (3.4-5.0); BILIRUBIN,TOTAL 0.6 mg/dL (0.1-1.0); CALCIUM, TOTAL 9.5 mg/dL (8.8-10.5); CHOL/HDL RATIO 3.1 (3.9-5.7); CREATININE 1.79 mg/dL (0.60-1.30); POTASSIUM 4.8 mmol/L (3.5-5.1)
[2024-10-18 12:25] LABS: CREATININE,URINE RANDOM 232.8 mg/dL (30.0-125.0)
== END | disposition home or self-care (01) ==
LOC: LABMN 11:02
PROVIDERS: ATTEND Internal Medicine Nephrology
DX: E11.22 Type 2 diabetes mellitus with diabetic chronic kidney disease (principal); N18.4 Chronic kidney disease, stage 4 (severe); E55.9 Vitamin D deficiency, unspecified; Z00.00 Encounter for general adult medical examination without abnormal findings
CPT/HCPCS: 80053; 80061; 82306; 82570; 83036; 84156

== ENCOUNTER 2024-10-27 17:48 | Inpatient (IN) | payer MEDICARE, OTHER ==
[~2024-10-27] VITALS: Ht 154.9 cm; Wt 78.2 kg
[2024-10-27 19:39] LABS: LACTIC ACID 1.4 mmol/L (0.4-2.0)
[2024-10-27 19:40] LABS: TROPONIN I-HIGH SENSITIVITY 13 ng/L (<51)
[2024-10-27 19:42] LABS: ANION GAP 11 mmol/L (8-16); BASOPHILS % (AUTO) 0.2 % (0.0-2.0); CALCIUM, TOTAL 9.3 mg/dL (8.8-10.5); CARBON DIOXIDE 26 mmol/L (22-29); CHLORIDE 95 mmol/L (98-107); CREATININE 1.97 mg/dL (0.60-1.30); EOSINOPHILS % (AUTO) 0 % (1.0-6.0); GLOMERULAR FILTR. RATE CALC 24 mL/min (>60); HEMATOCRIT 40.4 % (36-46); HEMOGLOBIN 13.1 g/dL (12.0-16.0); LIPASE 162 U/L (16-77); LYMPHOCYTES # (AUTO) 0.6 K/uL (1.0-4.8); LYMPHOCYTES % (AUTO) 3.7 % (22.0-44.0); MEAN CORPUSCULAR HEMOGLOBIN 28.7 pg (26.0-34.0); MEAN CORPUSCULAR HGB CONC 32.5 G/dL (31.0-37.0); MEAN CORPUSCULAR VOLUME 88 fL (80-100); MONOCYTES # (AUTO) 1.1 K/uL (0.1-1.0); MONOCYTES % (AUTO) 6.4 % (2.0-9.0); NEUTROPHILS # (AUTO) 15.1 K/uL (1.8-7.7); PLATELET COUNT (AUTO) 206 K/uL (150-450); POTASSIUM 4.4 mmol/L (3.5-5.1); RED BLOOD CELL COUNT(AUTO) 4.58 MIL/uL (4.00-5.20); SODIUM SERUM 132 mmol/L (136-145); UREA NITROGEN, BLOOD 31 mg/dL (7-18); WHITE BLOOD COUNT (AUTO) 16.8 K/uL (4.5-11.0)
[2024-10-27 19:57] LABS: NEUTROPHILS % (AUTO) 89.7 % (40.0-70.0)
[2024-10-27 20:00] LABS: B-TYPE NATRIURETIC PEPTIDE 239 pg/mL (0-100)
[2024-10-27 20:01] LABS: GLUCOSE,RANDOM 417 mg/dL (70-110)
[2024-10-27] MEDS: INSULIN REGULAR, HUMAN 100 UNITS/ML IVP ONE (21:14)
[2024-10-27 21:42] LABS: COVID AG,FIA SOURCE NASAL SWAB
[2024-10-27] MEDS: IPRATROPIUM BROMIDE 0.5 MG/2.5 ML NEB SOLUTION NEB SCH (21:45)
[2024-10-27] MEDS: CefTRIAXone 1 GM/DEXTROSE 50 ML IV SCH (21:45)
[2024-10-27] MEDS ORDERED: ALBUTEROL SULFATE 2.5 MG/0.5 ML NEB SOLUTION NEB PRN (21:45)
[2024-10-27] MEDS ORDERED: ALBUTEROL SULFATE 2.5 MG/0.5 ML NEB SOLUTION NEB SCH (21:45)
[2024-10-27] MEDS ORDERED: ACETAMINOPHEN 325 MG TABLET PO PRN (21:45)
[2024-10-27] MEDS ORDERED: ONDANSETRON HCL 4 MG/2 ML VIAL IVP PRN (21:45)
[2024-10-27] MEDS ORDERED: DEXTROSE 50%-WATER 25 GM/50 ML SYRINGE IVP PRN (22:00)
[2024-10-27 22:09] LABS: SARS-COV2 (COVID) ANTIGEN,FIA Negative (Negative)
[2024-10-27 22:10] LABS: INFLUENZA TYPE A NEGATIVE FOR TYPE A (NEGATIVE); INFLUENZA TYPE B NEGATIVE FOR TYPE B (NEGATIVE)
[2024-10-27] MEDS: SODIUM CHLORIDE 0.9% 1,000 ML IV ONE (22:29)
[2024-10-27] MEDS: MethylPREDNISolone SOD SUCC 125 MG/2 ML VIAL IVP ONE (22:30)
[2024-10-27] MEDS: CefTRIAXone 1 GM/DEXTROSE 50 ML IV ONE (22:31)
[2024-10-27] MEDS: INSULIN GLARGINE,HUM.REC.ANLOG 100 UNITS/ML SQ SCH (22:32)
[2024-10-27 22:40] VITALS: PULSE 80; RESP 24; O2SAT 90
[2024-10-27] MEDS: ALBUTEROL SULFATE 2.5 MG/0.5 ML NEB SOLUTION NEB PRN (22:40)
[2024-10-27] MEDS: IPRATROPIUM BROMIDE 0.5 MG/2.5 ML NEB SOLUTION NEB PRN (22:40)
[2024-10-27 22:52] LABS: PROTHROMBIN TIME 11.3 SEC (9.4-11.6)
[2024-10-27] MEDS: AZITHROMYCIN 500 MG/NS 250 ML IV ONE (22:52)
[2024-10-27 22:54] LABS: ALBUMIN 3.5 g/dL (3.4-5.0); BILIRUBIN,DIRECT 0.4 mg/dL (0.00-0.20); TOTAL PROTEIN, SERUM 8.5 g/dL (6.4-8.2)
[2024-10-27 22:55] VITALS: PULSE 85; RESP 22; O2SAT 98
[2024-10-27] MEDS: INSULIN GLARGINE,HUM.REC.ANLOG 100 UNITS/ML SQ ONE (22:55)
[2024-10-27 22:57] LABS: TROPONIN I-HIGH SENSITIVITY 14 ng/L (<51)
[2024-10-27] MEDS ORDERED: HydrALAZINE HCL 20 MG/ML VIAL IVP PRN (23:15)
[2024-10-28] VITALS (12 sets, daily range): BP systolic 112–131; BP diastolic 65–73; PULSE 72–83; RESP 16–26; TEMP 98.2–98.6; O2SAT 95–100
[2024-10-28] MEDS ORDERED: IPRATROPIUM BROMIDE 0.5 MG/2.5 ML NEB SOLUTION NEB SCH
[2024-10-28] MEDS: NITROGLYCERIN 2% (1 GM=INCH) OINTMENT PACKET TP SCH
[2024-10-28] MEDS ORDERED: HEPARIN SODIUM,PORCINE 5,000 UNITS/ML VIAL SQ SCH
[2024-10-28] MEDS: DOXYCYCLINE HYCLATE 100 MG in DEXTROSE 5%-WATER 100 ML IV SCH (01:06)
[2024-10-28] MEDS: SODIUM CHLORIDE 0.9% 500 ML IV ONE ×2 (01:07→12:38)
[2024-10-28] MEDS ORDERED: ALBUTEROL SULFATE 2.5 MG/0.5 ML NEB SOLUTION NEB SCH ×2 (02:00)
[2024-10-28] MEDS: IPRATROPIUM BROMIDE 0.5 MG/2.5 ML NEB SOLUTION NEB SCH ×2 (02:08→20:03)
[2024-10-28] MEDS: ALBUTEROL SULFATE 2.5 MG/0.5 ML NEB SOLUTION NEB SCH ×2 (02:08→20:03)
[2024-10-28 06:51] LABS: BASOPHILS % (AUTO) 0.1 % (0.0-2.0); EOSINOPHILS % (AUTO) 0 % (1.0-6.0); HEMATOCRIT 37.5 % (36-46); HEMOGLOBIN 12.2 g/dL (12.0-16.0); LYMPHOCYTES # (AUTO) 0.5 K/uL (1.0-4.8); LYMPHOCYTES % (AUTO) 2.9 % (22.0-44.0); MEAN CORPUSCULAR HEMOGLOBIN 28.7 pg (26.0-34.0); MEAN CORPUSCULAR HGB CONC 32.6 G/dL (31.0-37.0); MEAN CORPUSCULAR VOLUME 88 fL (80-100); MONOCYTES # (AUTO) 0.3 K/uL (0.1-1.0); MONOCYTES % (AUTO) 1.8 % (2.0-9.0); PLATELET COUNT (AUTO) 184 K/uL (150-450); RED BLOOD CELL COUNT(AUTO) 4.26 MIL/uL (4.00-5.20); RED CELL DISTRIBUTION WIDTH 15.1 % (11.5-14.5); WHITE BLOOD COUNT (AUTO) 15.7 K/uL (4.5-11.0)
[2024-10-28 07:05] LABS: NEUTROPHILS % (AUTO) 95.2 % (40.0-70.0)
[2024-10-28 07:17] LABS: CALCIUM, TOTAL 8.7 mg/dL (8.8-10.5); CREATININE 1.84 mg/dL (0.60-1.30); MAGNESIUM 2.1 mg/dL (1.80-2.40); POTASSIUM 4.5 mmol/L (3.5-5.1)
[2024-10-28] MEDS: APIXABAN 5 MG TABLET PO SCH (08:20)
[2024-10-28] MEDS: MethylPREDNISolone SOD SUCC 125 MG/2 ML VIAL IVP SCH (08:20)
[2024-10-28] MEDS: DOCUSATE SODIUM 100 MG CAPSULE PO SCH (08:21)
[2024-10-28] MEDS: AMIODARONE HCL 200 MG TABLET PO SCH (08:21)
[2024-10-28] MEDS: AmLODIPine BESYLATE 10 MG TABLET PO SCH (08:22)
[2024-10-28] MEDS ORDERED: [UNRECOGNIZED DRUG - OTHER] PO SCH (09:00)
[2024-10-28] MEDS: CARVEDILOL 12.5 MG TABLET PO SCH (09:52)
[2024-10-28] MEDS: ATORVASTATIN CALCIUM 10 MG TABLET PO SCH (09:52)
[2024-10-28] MEDS: INSULIN LISPRO 100 UNITS/ML SQ PRN (10:28)
[2024-10-28 11:51] LABS: GLUCOMETER DEV NAME(LOC) ER.7; GLUCOSE,POINT OF CARE 312 MG/DL (70-110)
[2024-10-28] MEDS ORDERED: ALBUTEROL SULFATE 2.5 MG/0.5 ML NEB SOLUTION NEB PRN (13:45)
[2024-10-28] MEDS ORDERED: IPRATROPIUM BROMIDE 0.5 MG/2.5 ML NEB SOLUTION NEB PRN (13:45)
[2024-10-28] MEDS: INSULIN LISPRO 100 UNITS/ML SQ ONE (17:41)
[2024-10-28 18:01] LABS: GLUCOMETER DEV NAME(LOC) 6S.2; GLUCOSE,POINT OF CARE 462 MG/DL (70-110)
[2024-10-28] MEDS: CefTRIAXone 1 GM/DEXTROSE 50 ML IV SCH (20:41)
[2024-10-28] MEDS: INSULIN GLARGINE,HUM.REC.ANLOG 100 UNITS/ML SQ SCH (21:11)
[2024-10-28] MEDS: APIXABAN 2.5 MG TABLET PO SCH (21:15)
[2024-10-29] VITALS (19 sets, daily range): BP systolic 110–133; BP diastolic 56–66; PULSE 42–82; RESP 16–20; TEMP 97.6–98.1; O2SAT 89–100
[2024-10-29 08:43] LABS: BASOPHILS % (AUTO) 0.1 % (0.0-2.0); EOSINOPHILS % (AUTO) 0 % (1.0-6.0); HEMATOCRIT 37.1 % (36-46); LYMPHOCYTES # (AUTO) 0.5 K/uL (1.0-4.8); LYMPHOCYTES % (AUTO) 3.2 % (22.0-44.0); MEAN CORPUSCULAR HGB CONC 32.2 G/dL (31.0-37.0); MEAN CORPUSCULAR VOLUME 90 fL (80-100); MONOCYTES # (AUTO) 0.5 K/uL (0.1-1.0); NEUTROPHILS # (AUTO) 15.1 K/uL (1.8-7.7); PLATELET COUNT (AUTO) 229 K/uL (150-450); RED BLOOD CELL COUNT(AUTO) 4.13 MIL/uL (4.00-5.20); RED CELL DISTRIBUTION WIDTH 15.4 % (11.5-14.5); WHITE BLOOD COUNT (AUTO) 16.1 K/uL (4.5-11.0)
[2024-10-29 08:46] LABS: NEUTROPHILS % (AUTO) 93.7 % (40.0-70.0)
[2024-10-29 08:59] LABS: CALCIUM, TOTAL 8.8 mg/dL (8.8-10.5); CREATININE 2.39 mg/dL (0.60-1.30); MAGNESIUM 2.3 mg/dL (1.80-2.40); POTASSIUM 4.2 mmol/L (3.5-5.1)
[2024-10-29] MEDS ORDERED: SODIUM CHLORIDE 0.9% 0 ML ONE (10:25)
[2024-10-29] MEDS: SODIUM CHLORIDE 0.9% 250 ML IV ONE (10:29)
[2024-10-29] MEDS: INSULIN GLARGINE,HUM.REC.ANLOG 100 UNITS/ML SQ SCH (10:31)
[2024-10-29 10:35] LABS: GLUCOMETER DEV NAME(LOC) 4E.2; GLUCOSE,POINT OF CARE 450 MG/DL (70-110)
[2024-10-29 10:35] LABS: GLUCOMETER DEV NAME(LOC) 4E.2; GLUCOSE,POINT OF CARE 460 MG/DL (70-110)
[2024-10-29 10:35] LABS: GLUCOMETER DEV NAME(LOC) 4E.2; GLUCOSE,POINT OF CARE 350 MG/DL (70-110)
[2024-10-29] MEDS: INSULIN LISPRO 100 UNITS/ML SQ ONE (11:54)
[2024-10-29] MEDS ORDERED: INSULIN LISPRO 100 UNITS/ML SQ ONE (12:00)
[2024-10-29 12:01] LABS: GLUCOMETER DEV NAME(LOC) 4E.2; GLUCOSE,POINT OF CARE 436 MG/DL (70-110)
[2024-10-29] MEDS: SODIUM CHLORIDE 0.9% 1,000 ML IV SCH (14:42)
[2024-10-29 17:05] LABS: GLUCOMETER DEV NAME(LOC) 4E.2; GLUCOSE,POINT OF CARE 340 MG/DL (70-110)
[2024-10-30] VITALS (13 sets, daily range): BP systolic 125–152; BP diastolic 77–92; PULSE 72–103; RESP 17–18; TEMP 97.7–98.6; O2SAT 90–98
[2024-10-30 06:30] LABS: GLUCOMETER DEV NAME(LOC) 6N.1B; GLUCOSE,POINT OF CARE 237 MG/DL (70-110)
[2024-10-30 07:46] LABS: GLUCOMETER DEV NAME(LOC) 4E.2; GLUCOSE,POINT OF CARE 333 MG/DL (70-110)
[2024-10-30] MEDS: MethylPREDNISolone SOD SUCC 125 MG/2 ML VIAL IVP SCH (08:52)
[2024-10-30 09:00] LABS: BASOPHILS % (AUTO) 0.2 % (0.0-2.0); EOSINOPHILS % (AUTO) 0 % (1.0-6.0); HEMATOCRIT 38.3 % (36-46); HEMOGLOBIN 12.2 g/dL (12.0-16.0); LYMPHOCYTES # (AUTO) 0.8 K/uL (1.0-4.8); LYMPHOCYTES % (AUTO) 3.5 % (22.0-44.0); MEAN CORPUSCULAR HEMOGLOBIN 28.6 pg (26.0-34.0); MEAN CORPUSCULAR HGB CONC 31.9 G/dL (31.0-37.0); MEAN CORPUSCULAR VOLUME 90 fL (80-100); MONOCYTES # (AUTO) 0.9 K/uL (0.1-1.0); MONOCYTES % (AUTO) 4.3 % (2.0-9.0); PLATELET COUNT (AUTO) 274 K/uL (150-450); RED BLOOD CELL COUNT(AUTO) 4.27 MIL/uL (4.00-5.20); RED CELL DISTRIBUTION WIDTH 15.6 % (11.5-14.5); WHITE BLOOD COUNT (AUTO) 21.8 K/uL (4.5-11.0)
[2024-10-30 09:12] LABS: CALCIUM, TOTAL 9.2 mg/dL (8.8-10.5); CREATININE 2.02 mg/dL (0.60-1.30); MAGNESIUM 2.3 mg/dL (1.80-2.40); POTASSIUM 4.2 mmol/L (3.5-5.1)
[2024-10-30] MEDS: LINEZOLID 600 MG TABLET PO SCH (11:26)
[2024-10-30 12:05] LABS: GLUCOMETER DEV NAME(LOC) 6N.1B; GLUCOSE,POINT OF CARE 232 MG/DL (70-110)
[2024-10-30] MEDS: CITRIC ACID/SODIUM CITRATE 30 ML SOLUTION UDCUP PO SCH (12:10)
[2024-10-30 17:01] LABS: GLUCOMETER DEV NAME(LOC) 6N.1B; GLUCOSE,POINT OF CARE 215 MG/DL (70-110)
[2024-10-30] MEDS ORDERED: MAGNESIUM HYDROXIDE SUSPENSION 30 ML UDCUP PO PRN (17:30)
[2024-10-30] MEDS ORDERED: HYDR25TA84 PO (17:37)
[2024-10-30] MEDS ORDERED: CARV6.2534 PO (17:37)
[2024-10-30] MEDS: SODIUM CHLORIDE 0.9% 1,000 ML IV ONE (20:44)
[2024-10-30] MEDS: INSULIN GLARGINE,HUM.REC.ANLOG 100 UNITS/ML SQ SCH (20:46)
[2024-10-30 22:01] LABS: GLUCOMETER DEV NAME(LOC) 6N.1B; GLUCOSE,POINT OF CARE 249 MG/DL (70-110)
[2024-10-31] VITALS (17 sets, daily range): BP systolic 118–152; BP diastolic 58–98; PULSE 71–93; RESP 18–28; TEMP 97.8–98.1; O2SAT 92–100
[2024-10-31 06:25] LABS: GLUCOMETER DEV NAME(LOC) 6N.1B; GLUCOSE,POINT OF CARE 157 MG/DL (70-110)
[2024-10-31 08:51] LABS: GLUCOMETER DEV NAME(LOC) 6N.1B; GLUCOSE,POINT OF CARE 65 MG/DL (70-110)
[2024-10-31 10:01] LABS: GLUCOMETER DEV NAME(LOC) 6N.1B; GLUCOSE,POINT OF CARE 103 MG/DL (70-110)
[2024-10-31 12:10] LABS: GLUCOMETER DEV NAME(LOC) 6N.1B; GLUCOSE,POINT OF CARE 75 MG/DL (70-110)
[2024-10-31] MEDS: MethylPREDNISolone SOD SUCC 125 MG/2 ML VIAL IVP SCH (12:15)
[2024-10-31] MEDS ORDERED: CefTRIAXone 1 GM/DEXTROSE 50 ML IV SCH (14:30)
[2024-10-31 15:55] LABS: CALCIUM, TOTAL 8.9 mg/dL (8.8-10.5); CREATININE 1.66 mg/dL (0.60-1.30); POTASSIUM 4.6 mmol/L (3.5-5.1)
[2024-10-31 15:57] LABS: APPEARANCE,URINE CLEAR (CLEAR); BILIRUBIN,URINE NEGATIVE (NEGATIVE); COLOR,URINE LIGHT YELLOW (YELLOW); GLUCOSE, URINE (UA) 150-200 mg/dL (NEGATIVE); KETONES,URINE NEGATIVE (NEGATIVE); LEUKOCYTE ESTERASE ,URINE NEGATIVE (NEGATIVE); NITRATE,URINE NEGATIVE (NEGATIVE); OCCULT BLOOD,URINE NEGATIVE (NEGATIVE); PH,URINE 5.5 (5.0-8.0); PROTEIN,URINE 30-70 mg/dL (NEGATIVE); SPECIFIC GRAVITIY, URINE 1.017 (1.003-1.030); UROBILINOGEN,URINE <=1.0 mg/dL (<=1.0)
[2024-10-31 16:03] LABS: BACTERIA,URINE None Seen /HPF (None Seen); RBC,URINE None Seen /HPF (0-2); SQUAMOUS EPITHELIAL CELL,UR Few /LPF (None Seen); WBC,URINE None Seen /HPF (0-5)
[2024-10-31] MEDS: MethylPREDNISolone SOD SUCC 40 MG/ML VIAL IVP ONE (16:35)
[2024-10-31] MEDS: AZITHROMYCIN 500 MG/NS 250 ML IV SCH (16:37)
[2024-10-31 17:51] LABS: GLUCOMETER DEV NAME(LOC) 5S.1D; GLUCOSE,POINT OF CARE 130 MG/DL (70-110)
[2024-10-31] MEDS: BENZONATATE 100 MG CAPSULE PO PRN (20:12)
[2024-10-31 21:41] LABS: GLUCOMETER DEV NAME(LOC) 5S.1D; GLUCOSE,POINT OF CARE 267 MG/DL (70-110)
[2024-11-01 05:05] VITALS: BP 152/70; PULSE 88; RESP 20; TEMP 97.9; O2SAT 97
[2024-11-01 05:31] LABS: GLUCOMETER DEV NAME(LOC) 6N.1B; GLUCOSE,POINT OF CARE 129 MG/DL (70-110)
[2024-11-01 08:06] VITALS: PULSE 82; RESP 24; O2SAT 98
[2024-11-01] MEDS: PredniSONE 20 MG TABLET PO SCH (08:07)
[2024-11-01 08:19] VITALS: BP 154/96; PULSE 82; RESP 19; TEMP 98; O2SAT 98
[2024-11-01 08:21] VITALS: PULSE 83; RESP 22; O2SAT 98
[2024-11-01 08:26] LABS: HEMATOCRIT 35.8 % (36-46); HEMOGLOBIN 12.1 g/dL (12.0-16.0); MEAN CORPUSCULAR HEMOGLOBIN 30.1 pg (26.0-34.0); MEAN CORPUSCULAR HGB CONC 33.9 G/dL (31.0-37.0); MEAN CORPUSCULAR VOLUME 89 fL (80-100); PLATELET COUNT (AUTO) 271 K/uL (150-450); RED BLOOD CELL COUNT(AUTO) 4.02 MIL/uL (4.00-5.20); RED CELL DISTRIBUTION WIDTH 15.7 % (11.5-14.5); WHITE BLOOD COUNT (AUTO) 12.6 K/uL (4.5-11.0)
[2024-11-01 08:34] LABS: CALCIUM, TOTAL 9.1 mg/dL (8.8-10.5); CREATININE 1.53 mg/dL (0.60-1.30); POTASSIUM 4.3 mmol/L (3.5-5.1); TROPONIN I-HIGH SENSITIVITY 16 ng/L (<51)
[2024-11-01 09:05] LABS: GLUCOMETER DEV NAME(LOC) 6N.1B; GLUCOSE,POINT OF CARE 115 MG/DL (70-110)
[2024-11-01 10:07] LABS: BAND NEUTROPHILS % (MANUAL) 0 % (0-5)
[2024-11-01 10:09] LABS: LYMPHOCYTES % (MANUAL) 5 % (22-44); MONOCYTES % (MANUAL) 7 % (2-9); RBC MORPHOLOGY COMMENT NORMAL RBC MORPH; SEGMENTED NEUTROPHILS % 88 % (40-70); TOTAL CELLS COUNTED 100
== END 2024-11-01 12:00 | disposition left against medical advice (07) | DRG 871 ==
LOC: EMS 17:48 → EDH 21:44 → 6S 10-28 12:14 → 4E 10-28 18:44
PROVIDERS: ADMIT Internal Medicine; ATTEND Internal Medicine
PROC: 05HC33Z Insertion of Infusion Device into Left Basilic Vein, Percutaneous Approach (ICD-10-PCS; principal; 2024-10-31)
PROC: B54NZZA Ultrasonography of Left Upper Extremity Veins, Guidance (ICD-10-PCS; 2024-10-31)
DX: A41.9 Sepsis, unspecified organism (principal); I50.43 Acute on chronic combined systolic (congestive) and diastolic (congestive) heart failure; J18.0 Bronchopneumonia, unspecified organism; J96.01 Acute respiratory failure with hypoxia; J18.9 Pneumonia, unspecified organism; N18.4 Chronic kidney disease, stage 4 (severe); I13.0 Hypertensive heart and chronic kidney disease with heart failure and stage 1 through stage 4 chronic kidney disease, or unspecified chronic kidney disease; N17.9 Acute kidney failure, unspecified; E87.1 Hypo-osmolality and hyponatremia; E87.20 Acidosis, unspecified; J45.901 Unspecified asthma with (acute) exacerbation; Z20.822 Contact with and (suspected) exposure to COVID-19; I34.0 Nonrheumatic mitral (valve) insufficiency; B19.20 Unspecified viral hepatitis C without hepatic coma; E11.65 Type 2 diabetes mellitus with hyperglycemia; E11.22 Type 2 diabetes mellitus with diabetic chronic kidney disease; I48.0 Paroxysmal atrial fibrillation; E78.00 Pure hypercholesterolemia, unspecified; Z53.29 Procedure and treatment not carried out because of patient's decision for other reasons; Z79.4 Long term (current) use of insulin; Z82.49 Family history of ischemic heart disease and other diseases of the circulatory system; Z83.3 Family history of diabetes mellitus; Z85.3 Personal history of malignant neoplasm of breast; Z86.16 Personal history of COVID-19; Z90.722 Acquired absence of ovaries, bilateral
CPT/HCPCS: 36245; 36569; 71045; 76770; 76937; 80048; 80076; 81001; 82962; 83605; 83690; 83735; 83880; 84145; 84484; 85025; 85610; 87040; 87804; 93005; 93306; 94640; 97116; 97162; 97166; 97530; 97535; 99285; G0378; J0456; J0696; J1815; J2919; J3490; J7030; J7040; J7060; 36415-L1; 36415-TC; J7613

== ENCOUNTER 2024-12-03 11:49 | Inpatient (IN) | payer MEDICARE, OTHER ==
[~2024-12-03] VITALS: Ht 157.5 cm; Wt 88.4 kg
[~2024-12-03 11:49] MED LIST changes: -CARV12.530 PO; +CARV6.2534 PO; +HYDR25TA84 PO
[2024-12-03 13:12] LABS: CALCIUM, TOTAL 8.9 mg/dL (8.8-10.5); CREATININE 1.36 mg/dL (0.60-1.30); POTASSIUM 4.9 mmol/L (3.5-5.1)
[2024-12-03 15:45] LABS: BASOPHILS % (AUTO) 0.4 % (0.0-2.0); EOSINOPHILS % (AUTO) 0.6 % (1.0-6.0); HEMATOCRIT 40.8 % (36-46); HEMOGLOBIN 13.1 g/dL (12.0-16.0); LYMPHOCYTES # (AUTO) 0.9 K/uL (1.0-4.8); LYMPHOCYTES % (AUTO) 10.5 % (22.0-44.0); MEAN CORPUSCULAR HEMOGLOBIN 28.9 pg (26.0-34.0); MEAN CORPUSCULAR HGB CONC 32.2 G/dL (31.0-37.0); MEAN CORPUSCULAR VOLUME 90 fL (80-100); MONOCYTES # (AUTO) 0.5 K/uL (0.1-1.0); MONOCYTES % (AUTO) 5.9 % (2.0-9.0); NEUTROPHILS # (AUTO) 6.9 K/uL (1.8-7.7); NEUTROPHILS % (AUTO) 82.6 % (40.0-70.0); RED BLOOD CELL COUNT(AUTO) 4.55 MIL/uL (4.00-5.20); RED CELL DISTRIBUTION WIDTH 17.1 % (11.5-14.5); WHITE BLOOD COUNT (AUTO) 8.4 K/uL (4.5-11.0)
[2024-12-03 15:49] LABS: TROPONIN I-HIGH SENSITIVITY 14 ng/L (<51)
[2024-12-03 16:19] LABS: PLATELET COUNT (AUTO) 250 K/uL (150-450)
[2024-12-03] MEDS: HydrALAZINE HCL 25 MG TABLET PO SCH (16:50)
[2024-12-03 20:55] VITALS: BP 155/97; PULSE 69; RESP 18; TEMP 98.1; O2SAT 99
[2024-12-03] MEDS: ATORVASTATIN CALCIUM 10 MG TABLET PO SCH (21:02)
[2024-12-03] MEDS: CARVEDILOL 6.25 MG TABLET PO SCH (21:02)
[2024-12-03] MEDS: APIXABAN 5 MG TABLET PO SCH (21:02)
[2024-12-04 00:15] VITALS: BP 114/75; PULSE 63; RESP 18; TEMP 98; O2SAT 98
[2024-12-04 05:04] VITALS: BP 123/63; PULSE 54; RESP 18; TEMP 97.9; O2SAT 97
[2024-12-04] MEDS: DEXTROSE 50%-WATER 25 GM/50 ML SYRINGE IVP ONE (06:50)
[2024-12-04 06:56] LABS: GLUCOMETER DEV NAME(LOC) 5S.2D; GLUCOSE,POINT OF CARE 63 MG/DL (70-110)
[2024-12-04 06:56] LABS: GLUCOMETER DEV NAME(LOC) 5S.2D; GLUCOSE,POINT OF CARE 38 MG/DL (70-110)
[2024-12-04 06:56] LABS: GLUCOMETER DEV NAME(LOC) 5S.2D; GLUCOSE,POINT OF CARE 113 MG/DL (70-110)
[2024-12-04 08:35] LABS: GLUCOMETER DEV NAME(LOC) 5N.1D; GLUCOSE,POINT OF CARE 217 MG/DL (70-110)
[2024-12-04 08:58] VITALS: BP 134/82; PULSE 62; RESP 17; TEMP 98; O2SAT 99
[2024-12-04] MEDS: AMIODARONE HCL 200 MG TABLET PO SCH (09:40)
[2024-12-04] MEDS: SitaGLIPtin PHOSPHATE 100 MG TABLET PO SCH (09:41)
[2024-12-04] MEDS: AmLODIPine BESYLATE 10 MG TABLET PO SCH (09:41)
[2024-12-04] MEDS: CALCIUM OYSTER SHELL 250 MG-VIT D3 125 UNITS[3.125MCG] TABLET PO SCH (09:43)
[2024-12-04] MEDS: LOSARTAN POTASSIUM 50 MG TABLET PO SCH (09:43)
[2024-12-04 11:46] LABS: GLUCOMETER DEV NAME(LOC) 5S.2D; GLUCOSE,POINT OF CARE 233 MG/DL (70-110)
[2024-12-04 11:56] LABS: GLUCOMETER DEV NAME(LOC) 5S.2D; GLUCOSE,POINT OF CARE 135 MG/DL (70-110)
[2024-12-04 17:14] VITALS: BP 136/77; PULSE 70; RESP 18; TEMP 98.4; O2SAT 98
[2024-12-04 19:19] VITALS: BP 135/68; PULSE 73; RESP 18; TEMP 98.1; O2SAT 98
[2024-12-04 21:36] LABS: GLUCOMETER DEV NAME(LOC) 5N.1D; GLUCOSE,POINT OF CARE 161 MG/DL (70-110)
[2024-12-04 21:36] LABS: GLUCOMETER DEV NAME(LOC) 5N.1D; GLUCOSE,POINT OF CARE 263 MG/DL (70-110)
[2024-12-04 21:36] LABS: GLUCOMETER DEV NAME(LOC) 5N.1D; GLUCOSE,POINT OF CARE 279 MG/DL (70-110)
[2024-12-05 00:11] VITALS: BP 140/74; PULSE 70; RESP 18; TEMP 98.4; O2SAT 97
[2024-12-05 04:54] VITALS: BP 147/73; PULSE 71; RESP 18; TEMP 97.6; O2SAT 99
[2024-12-05 05:46] LABS: GLUCOMETER DEV NAME(LOC) 5N.1D; GLUCOSE,POINT OF CARE 114 MG/DL (70-110)
[2024-12-05 08:40] VITALS: BP 132/70; PULSE 80; RESP 19; TEMP 98; O2SAT 99
[2024-12-05 11:13] VITALS: BP 138/72; PULSE 74; RESP 19; TEMP 98.2; O2SAT 98
[2024-12-05 16:03] VITALS: BP 114/55; PULSE 61; RESP 18; TEMP 98; O2SAT 98
[2024-12-05 17:50] LABS: GLUCOMETER DEV NAME(LOC) 5N.2C; GLUCOSE,POINT OF CARE 163 MG/DL (70-110)
[2024-12-05 21:01] LABS: GLUCOMETER DEV NAME(LOC) 5S.2D; GLUCOSE,POINT OF CARE 180 MG/DL (70-110)
== END 2024-12-05 18:50 | disposition home or self-care (01) | DRG 637 ==
LOC: EMS 11:49 → EDH 16:47 → 5S 20:44
PROVIDERS: ADMIT Hospitalist; ATTEND Hospitalist
DX: E11.649 Type 2 diabetes mellitus with hypoglycemia without coma (principal); G93.41 Metabolic encephalopathy; I13.0 Hypertensive heart and chronic kidney disease with heart failure and stage 1 through stage 4 chronic kidney disease, or unspecified chronic kidney disease; I48.0 Paroxysmal atrial fibrillation; N18.9 Chronic kidney disease, unspecified; E11.22 Type 2 diabetes mellitus with diabetic chronic kidney disease; N17.9 Acute kidney failure, unspecified; R62.7 Adult failure to thrive; E78.00 Pure hypercholesterolemia, unspecified; I50.9 Heart failure, unspecified; Z68.35 Body mass index [BMI] 35.0-35.9, adult; Z82.49 Family history of ischemic heart disease and other diseases of the circulatory system; Z83.3 Family history of diabetes mellitus; Z85.3 Personal history of malignant neoplasm of breast
CPT/HCPCS: 71045; 80048; 82140; 82962; 84484; 85025; 93005; 97116; 97163; 97165; 97530; 97535; 99291; 36415-L1; 36415-TC

== ENCOUNTER 2025-03-26 08:36 | Emergency (ER) | payer MEDICARE, OTHER ==
[~2025-03-26] VITALS: Ht 154.9 cm; Wt 100.0 kg
[2025-03-26 08:45] VITALS: BP 114/69; PULSE 81; RESP 18; TEMP 97.7; O2SAT 98
[2025-03-26] MEDS ORDERED: ALBU18HF12 IH (08:54)
[2025-03-26] MEDS: LIDOCAINE 5% TRANSDERMAL PATCH TD ONE (09:38)
[2025-03-26] MEDS: methocarbamoL 500 MG TABLET PO ONE (09:38)
[2025-03-26] MEDS: IBUPROFEN 600 MG TABLET PO ONE (09:38)
[2025-03-26 09:41] LABS: GLUCOMETER DEV NAME(LOC) ERT.7; GLUCOSE,POINT OF CARE 115 MG/DL (70-110)
[2025-03-26] MEDS ORDERED: IBUP-1492 PO (11:40)
[2025-03-26] MEDS ORDERED: METH-659 PO (11:40)
== END 2025-03-26 13:00 | disposition home or self-care (01) ==
LOC: EMS 08:39
DX: S39.012A Strain of muscle, fascia and tendon of lower back, initial encounter (principal); S40.012A Contusion of left shoulder, initial encounter; I11.0 Hypertensive heart disease with heart failure; I50.9 Heart failure, unspecified; E11.9 Type 2 diabetes mellitus without complications; E78.00 Pure hypercholesterolemia, unspecified; Z85.3 Personal history of malignant neoplasm of breast; Z86.19 Personal history of other infectious and parasitic diseases; Z90.721 Acquired absence of ovaries, unilateral; Z79.01 Long term (current) use of anticoagulants; Z79.899 Other long term (current) drug therapy; W19.XXXA Unspecified fall, initial encounter; Y93.89 Activity, other specified; Y92.89 Other specified places as the place of occurrence of the external cause; Y99.8 Other external cause status
CPT/HCPCS: 82962; 93005; 99284

== ENCOUNTER → 2025-05-05 | Outpatient (CLI) | payer MEDICARE, OTHER ==
[~2025-05-05] MED LIST changes: +ALBU18HF12 IH; +IBUP-1492 PO; +METH-659 PO
[2025-05-05 09:37] LABS: CALCIUM, TOTAL 9.8 mg/dL (8.8-10.5); CREATININE 1.87 mg/dL (0.60-1.30); GLOMERULAR FILTR. RATE CALC 26.0 mL/min (>60); GLUCOSE,RANDOM 142.0 mg/dL (70-110); SODIUM SERUM 137.0 mmol/L (136-145); UREA NITROGEN, BLOOD 31.0 mg/dL (7-18)
[2025-05-05 10:14] LABS: CREATININE,URINE RANDOM 203.0 mg/dL (30.0-125.0); PROTEIN,URINE RANDOM 299.0 mg/dL (0-11.9)
== END | disposition home or self-care (01) ==
LOC: LABMN 08:48
PROVIDERS: ATTEND Internal Medicine Nephrology
DX: I13.0 Hypertensive heart and chronic kidney disease with heart failure and stage 1 through stage 4 chronic kidney disease, or unspecified chronic kidney disease (principal); E11.22 Type 2 diabetes mellitus with diabetic chronic kidney disease; N18.4 Chronic kidney disease, stage 4 (severe); I50.9 Heart failure, unspecified; E55.9 Vitamin D deficiency, unspecified
CPT/HCPCS: 80048; 82306; 82570; 83036; 83970; 84156

== ENCOUNTER → 2025-08-04 | Outpatient (CLI) | payer MEDICARE, OTHER | END | disposition home or self-care (01) | LOC: RADMN 10:02 | PROVIDERS: ATTEND Internal Medicine Geriatric Medicine | DX: R06.02 Shortness of breath (principal); M47.814 Spondylosis without myelopathy or radiculopathy, thoracic region; I11.0 Hypertensive heart disease with heart failure; I50.9 Heart failure, unspecified | CPT/HCPCS: 71046 ==

== ENCOUNTER → 2025-08-17 | Outpatient (CLI) | payer MEDICARE, OTHER ==
[2025-08-17 10:19] LABS: APPEARANCE,URINE CLEAR (CLEAR); GLUCOSE, URINE (UA) >=1000 mg/dL (NEGATIVE); LEUKOCYTE ESTERASE ,URINE NEGATIVE (NEGATIVE); NITRATE,URINE NEGATIVE (NEGATIVE); OCCULT BLOOD,URINE NEGATIVE (NEGATIVE); SPECIFIC GRAVITIY, URINE 1.023 (1.003-1.030)
[2025-08-17 10:21] LABS: CREATININE,URINE RANDOM 219.4 mg/dL (30.0-125.0); PROTEIN,URINE RANDOM 119 mg/dL (0-11.9)
[2025-08-17 10:22] LABS: SQUAMOUS EPITHELIAL CELL,UR Moderate /LPF (None Seen); SULFOSALICYLIC ACID,URINE 2+ (Negative)
[2025-08-17 10:23] LABS: CALCIUM, TOTAL 9.0 mg/dL (8.8-10.5); CREATININE 2.22 mg/dL (0.60-1.30); GLOMERULAR FILTR. RATE CALC 21.0 mL/min (>60); GLUCOSE,RANDOM 124.0 mg/dL (70-110); SODIUM SERUM 137.0 mmol/L (136-145); UREA NITROGEN, BLOOD 38.0 mg/dL (7-18)
== END | disposition home or self-care (01) ==
LOC: LABMN 09:45
PROVIDERS: ATTEND Internal Medicine Nephrology
DX: I13.0 Hypertensive heart and chronic kidney disease with heart failure and stage 1 through stage 4 chronic kidney disease, or unspecified chronic kidney disease (principal); N18.4 Chronic kidney disease, stage 4 (severe); E11.22 Type 2 diabetes mellitus with diabetic chronic kidney disease; I50.9 Heart failure, unspecified; E55.9 Vitamin D deficiency, unspecified
CPT/HCPCS: 80048; 81001; 81002; 82306; 82570; 83036; 84156